=== PATIENT | female | born 1945 | race Caucasian/White ===

== ENCOUNTER 2025-05-16 16:50 | Inpatient (IN) | payer MEDICARE, OTHER ==
[~2025-05-16] VITALS: Ht 162.6 cm; Wt 72.6 kg
[~2025-05-16 16:50] MED LIST: ACETAMINOPHEN325 M1 PO; ALDACTONE25 MG; CALCIUM CARBON500 MG PO; CYANOCOBALAMIN PO; FERROUS SULFAT325 MG; FOLIC ACID1 MG PO; GABAPENTIN100 MG; LEVOTHYROXINE75 MCG PO; MAGNESIUM OXID400 MG PO; MIRALAX17 GM; PANTOPRAZOLE SO40 MG PO; PROBIOTIC COMP1 EACH PO; REMERON15 M1 PO; VITAMIN D35000 UNIT PEG; [UNRECOGNIZED DRUG - OTHER]
[2025-05-16 18:34] LABS: BASOPHILS % 0.2 % (0.0-1.0); EOSINOPHILS % 2.5 % (0.0-6.0); LYMPHOCYTES % 39.1 % (18.0-39.1); MONOCYTES % 5.5 % (4.4-11.3); NEUTROPHILS % 52.5 % (38.7-80.0); RED CELL DISTRIBUTION WIDTH 13.2 % (11.7-14.4)
[2025-05-16 18:48] LABS: AMPHETAMINES SCREEN,URINE NEGATIVE (NEGATIVE); CANNABINOIDS SCREEN,URINE NEGATIVE (NEGATIVE); COCAINE SCREEN,URINE NEGATIVE (NEGATIVE); METHADONE SCREEN, URINE NEGATIVE (NEGATIVE); OPIATES SCREEN,URINE NEGATIVE (NEGATIVE)
[2025-05-16] MEDS: SODIUM CHLORIDE 0.9% 1000ML 1,000 ML IV STA (18:48)
[2025-05-16 18:54] LABS: EST GLOMERULAR FILTRATION RATE 87.0 ML/MIN (>=60)
[2025-05-16 19:23] LABS: LEUKOCYTE ESTERASE ,URINE SMALL (NEGATIVE); PROTEIN,URINE DIPSTICK TRACE (NEGATIVE); URINE UROBILINOGEN 0.2 mg/dL (0.2 - 1)
[2025-05-16 19:41] LABS: WBC,URINE (MAN) 21-50 /HPF (0-5)
[2025-05-16] MEDS ORDERED: ONDANSETRON HCL INJ 2MG/ML 2ML 2 MG/ML VIAL IV PRN (20:00)
[2025-05-16] MEDS ORDERED: Morphine 4mg INJECTION 4 MG/ML INJ IV PRN (20:00)
[2025-05-16] MEDS: SODIUM CHLORIDE 0.9% 1000ML 1,000 ML IV SCH (21:37)
[2025-05-16] MEDS: CIPROFLOXACIN 400 MG/D5W 200ML 200 ML IV SCH (21:37)
[2025-05-16 22:42] VITALS: PULSE 69; RESP 17; TEMP 98.7
[2025-05-16 23:00] VITALS: BP 137/68; PULSE 63; RESP 20; TEMP 97.7; O2SAT 96
[2025-05-17 00:08] VITALS: BP 134/68; PULSE 63; RESP 17; TEMP 97.7; O2SAT 96
[2025-05-17 08:00] VITALS: BP 119/50; PULSE 58; RESP 20; TEMP 98.7; O2SAT 97
[2025-05-17 08:17] LABS: BASOPHILS % 0.4 % (0.0-1.0); EOSINOPHILS % 3.1 % (0.0-6.0); LYMPHOCYTES % 39.6 % (18.0-39.1); MONOCYTES % 6.7 % (4.4-11.3); NEUTROPHILS % 50.0 % (38.7-80.0); RED CELL DISTRIBUTION WIDTH 13.1 % (11.7-14.4)
[2025-05-17 09:00] VITALS: BP 119/50; PULSE 58; RESP 20; TEMP 98.7; O2SAT 97
[2025-05-17 09:01] LABS: EST GLOMERULAR FILTRATION RATE 90 ML/MIN (>=60)
[2025-05-17 12:00] VITALS: BP 136/67; PULSE 58; RESP 18; TEMP 98; O2SAT 99
[2025-05-17] MEDS: FOLIC ACID 1 MG TAB PO SCH (12:22)
[2025-05-17] MEDS: MAGNESIUM OXIDE 400 MG TAB PO SCH (12:22)
[2025-05-17] MEDS ORDERED: POTASSIUM CHLO20 ME1 PO (14:26)
[2025-05-17] MEDS ORDERED: ATORVASTATIN CA10 MG PO (14:26)
[2025-05-17] MEDS ORDERED: MEMANTINE HCL10 MG PO (14:26)
[2025-05-17] MEDS ORDERED: CIPRO500 MG/5 M PO (14:26)
[2025-05-17] MEDS ORDERED: DIFLUCAN100 MG PO (14:26)
[2025-05-17] MEDS ORDERED: ARICEPT10 MG PO (14:26)
[2025-05-17] MEDS ORDERED: ENULOSE10 GM/15 M PO (14:26)
[2025-05-17] MEDS ORDERED: PANTOPRAZOLE SO40 MG PO (14:26)
[2025-05-17] MEDS ORDERED: LOPERAMIDE2 MG PO (14:26)
[2025-05-17] MEDS ORDERED: LEXAPRO10 MG PO (14:26)
[2025-05-17] MEDS ORDERED: TYLENOL325 MG PO (14:26)
[2025-05-17] MEDS ORDERED: MIDODRINE HCL5 MG PO (14:26)
[2025-05-17] MEDS ORDERED: BENADRYL25 M1 PO (14:26)
[2025-05-17] MEDS ORDERED: FLANDERS BUTTOC30 GM TOP (14:26)
[2025-05-17] MEDS ORDERED: OXYBUTYNIN CHLOR5 M1 PO (14:26)
[2025-05-17] MEDS ORDERED: PRO-STAT AWC L887 ML PO (14:26)
[2025-05-17] MEDS ORDERED: LEVOTHYROXINE112 MCG PO (14:26)
[2025-05-17 16:00] VITALS: BP 120/65; PULSE 56; RESP 18; TEMP 97.9; O2SAT 98
[2025-05-17] MEDS ORDERED: PANTOPRAZOLE SOD 40 MG TABEC PO SCH (16:30)
[2025-05-17] MEDS ORDERED: MIDODRINE HCL 5 MG TABLET PO PRN (16:36)
[2025-05-17] MEDS: ENOXAPARIN SOD INJ 40 MG/0.4 ML SYR SC SCH (17:49)
[2025-05-17] MEDS: MEMANTINE 10 MG TAB PO SCH (17:49)
[2025-05-17 20:00] VITALS: BP 100/57; PULSE 68; RESP 18; TEMP 97.6; O2SAT 99
[2025-05-17] MEDS ORDERED: DONEPEZIL HCL 5 MG TAB PO SCH (21:00)
[2025-05-17] MEDS: LACTULOSE SYRUP 20 GM/30 ML UDC PO SCH (21:56)
[2025-05-18] VITALS (7 sets, daily range): BP systolic 115–143; BP diastolic 66–78; PULSE 54–70; RESP 16–18; TEMP 97.5–98.2; O2SAT 95–100
[2025-05-18] MEDS: LEVOTHYROXINE SODIUM 125 MCG TAB PO SCH (06:18)
[2025-05-18 07:11] LABS: BASOPHILS % 0.5 % (0.0-1.0); EOSINOPHILS % 4.2 % (0.0-6.0); LYMPHOCYTES % 46.4 % (18.0-39.1); MONOCYTES % 6.5 % (4.4-11.3); NEUTROPHILS % 42.2 % (38.7-80.0); RED CELL DISTRIBUTION WIDTH 13.0 % (11.7-14.4)
[2025-05-18] MEDS ORDERED: LEVOTHYROXINE SODIUM 112 MCG TAB PO SCH ×2 (07:30)
[2025-05-18] MEDS ORDERED: PANTOPRAZOLE SOD 40 MG TABEC PO SCH (07:30)
[2025-05-18 07:39] LABS: EST GLOMERULAR FILTRATION RATE 88.0 ML/MIN (>=60)
[2025-05-18] MEDS: ESCITALOPRAM OXALATE 10 MG TAB PO SCH (08:43)
[2025-05-18] MEDS: OXYBUTYNIN CHLORIDE XL 5 MG TAB PO SCH (08:43)
[2025-05-18] MEDS: PANTOPRAZOLE SOD 40 MG TABEC PO SCH (08:43)
[2025-05-18] MEDS: HYDROCODONE/APAP 5MG-325MG TAB PO PRN (10:47)
[2025-05-18] MEDS: PANTOPRAZOLE SODIUM 20 MG TABLET.DR PO SCH (16:31)
[2025-05-18] MEDS: DONEPEZIL HCL 5 MG TAB PO SCH (21:22)
[2025-05-19] VITALS (7 sets, daily range): BP systolic 92–143; BP diastolic 51–92; PULSE 53–81; RESP 16–20; TEMP 97.4–98.5; O2SAT 96–100
[2025-05-19] MEDS ORDERED: SODIUM CHLORIDE 0.9% 250ML 250 ML ONE (00:14)
[2025-05-19] MEDS ORDERED: IOPAMIDOL 370 MG/ML 100 ML INFUS..BTL INJ ONE (00:14)
[2025-05-19] MEDS: LEVOTHYROXINE SODIUM 112 MCG TAB PO SCH (06:59)
[2025-05-20] VITALS (9 sets, daily range): BP systolic 78–127; BP diastolic 46–63; PULSE 55–60; RESP 16–20; TEMP 97.5–99; O2SAT 96–100
[2025-05-20] MEDS: FLUCONAZOLE 100 MG TAB PO ONE (10:23)
[2025-05-21] VITALS (9 sets, daily range): BP systolic 90–115; BP diastolic 45–65; PULSE 51–87; RESP 17–18; TEMP 97.4–98.6; O2SAT 96–100
[2025-05-21] MEDS: FLUCONAZOLE 100 MG TAB PO SCH (08:46)
[2025-05-21] MEDS: ACETAMINOPHEN 325 MG/10 ML UDC PO PRN (08:47)
[2025-05-22] VITALS (10 sets, daily range): BP systolic 95–125; BP diastolic 44–62; PULSE 51–60; RESP 17–20; TEMP 97.4–98.5; O2SAT 96–99
[2025-05-22 09:31] LABS: BASOPHILS % 0.5 % (0.0-1.0); EOSINOPHILS % 2.9 % (0.0-6.0); LYMPHOCYTES % 43.4 % (18.0-39.1); MONOCYTES % 6.3 % (4.4-11.3); NEUTROPHILS % 46.6 % (38.7-80.0); RED CELL DISTRIBUTION WIDTH 13.6 % (11.7-14.4)
[2025-05-22 10:10] LABS: EST GLOMERULAR FILTRATION RATE 88.0 ML/MIN (>=60)
[2025-05-23] VITALS: BP 109/53; PULSE 52; RESP 18; TEMP 98.7; O2SAT 96
[2025-05-23 04:00] VITALS: BP 115/54; PULSE 94; RESP 18; TEMP 97.9; O2SAT 95
[2025-05-23 07:13] LABS: BASOPHILS % 0.5 % (0.0-1.0); EOSINOPHILS % 3.2 % (0.0-6.0); LYMPHOCYTES % 46.9 % (18.0-39.1); MONOCYTES % 5.9 % (4.4-11.3); NEUTROPHILS % 43.2 % (38.7-80.0); RED CELL DISTRIBUTION WIDTH 13.9 % (11.7-14.4)
[2025-05-23 07:38] LABS: EST GLOMERULAR FILTRATION RATE 91.0 ML/MIN (>=60)
[2025-05-23 08:56] VITALS: BP 125/63; PULSE 85; RESP 20; TEMP 97.9; O2SAT 96
[2025-05-23 09:00] VITALS: BP 125/63; PULSE 85; RESP 20; TEMP 97.9; O2SAT 96
[2025-05-23 12:20] VITALS: BP 112/58; PULSE 56; RESP 19; TEMP 97.5; O2SAT 97
== END 2025-05-23 14:58 | DRG 698 ==
LOC: ER 17:58 → ERHOLD 20:00 → MED/SURG3 23:28
PROVIDERS: ADMIT Internal Medicine; ATTEND Internal Medicine
PROC: 02HV33Z Insertion of Infusion Device into Superior Vena Cava, Percutaneous Approach (ICD-10-PCS; principal; 2025-05-21)
DX: T83.518A Infection and inflammatory reaction due to other urinary catheter, initial encounter (principal); G92.9 Unspecified toxic encephalopathy; B37.49 Other urogenital candidiasis; Z16.12 Extended spectrum beta lactamase (ESBL) resistance; Z16.24 Resistance to multiple antibiotics; F01.52 Vascular dementia, unspecified severity, with psychotic disturbance; F02.82 Dementia in other diseases classified elsewhere, unspecified severity, with psychotic disturbance; G30.9 Alzheimer's disease, unspecified; R62.7 Adult failure to thrive; D64.9 Anemia, unspecified; R31.29 Other microscopic hematuria; B96.20 Unspecified Escherichia coli [E. coli] as the cause of diseases classified elsewhere; N31.9 Neuromuscular dysfunction of bladder, unspecified; R53.81 Other malaise; Y84.6 Urinary catheterization as the cause of abnormal reaction of the patient, or of later complication, without mention of misadventure at the time of the procedure; Z79.890 Hormone replacement therapy; Z96.0 Presence of urogenital implants; E66.9 Obesity, unspecified; Z68.27 Body mass index [BMI] 27.0-27.9, adult; Z99.3 Dependence on wheelchair
CPT/HCPCS: 36415; 36569; 70450; 71045; 74178; 80048; 80053; 80307; 80320; 81001; 82550; 82948; 83880; 84484; 85025; 87086; 87186; 93005; 93970; 99285; J1650; J2185; J2470; J7030; J7050; Q9967